=== PATIENT | female | born 1935 | race Hispanic/Latino ===

== ENCOUNTER 2020-05-25 15:17 | Emergency (ER) | payer MEDICARE, OTHER ==
[2020-05-25] MEDS ORDERED: Acetaminophen 500 MG TAB ONE (17:25)
== END 2020-05-25 17:20 | disposition home or self-care (01) ==
LOC: CSHERS 15:17
DX: S00.83XA Contusion of other part of head, initial encounter (principal); E78.5 Hyperlipidemia, unspecified; E78.00 Pure hypercholesterolemia, unspecified; I10 Essential (primary) hypertension; M06.9 Rheumatoid arthritis, unspecified; Z79.82 Long term (current) use of aspirin; Z79.899 Other long term (current) drug therapy; W18.30XA Fall on same level, unspecified, initial encounter
CPT/HCPCS: 70450; 70480; 72170

== ENCOUNTER 2020-05-26 09:41 | Outpatient (CLI) | payer MEDICARE, OTHER | END 2020-05-26 09:42 | disposition home or self-care (01) | LOC: CSHWCC 09:41 | PROVIDERS: ATTEND Nurse Practitioner Family | DX: L89.152 Pressure ulcer of sacral region, stage 2 (principal); I69.998 Other sequelae following unspecified cerebrovascular disease; I10 Essential (primary) hypertension; G89.29 Other chronic pain; M13.80 Other specified arthritis, unspecified site; Z74.01 Bed confinement status | CPT/HCPCS: 99212; G0463 ==

== ENCOUNTER 2020-12-08 08:13 | Outpatient (CLI) | payer MEDICARE, OTHER | END 2020-12-08 08:14 | disposition home or self-care (01) | LOC: CSHWCC 08:13 | PROVIDERS: ATTEND Nurse Practitioner Family | DX: L89.152 Pressure ulcer of sacral region, stage 2 (principal); G89.29 Other chronic pain; I10 Essential (primary) hypertension; I69.998 Other sequelae following unspecified cerebrovascular disease; L89.311 Pressure ulcer of right buttock, stage 1; L89.321 Pressure ulcer of left buttock, stage 1; M13.80 Other specified arthritis, unspecified site; Z74.01 Bed confinement status | CPT/HCPCS: 97139; G0463; 99213 ==

== ENCOUNTER 2020-12-30 09:21 | Outpatient (CLI) | payer MEDICARE, OTHER | END 2020-12-30 09:22 | disposition home or self-care (01) | LOC: CSHWCC 09:21 | PROVIDERS: ATTEND Nurse Practitioner Family | DX: L89.152 Pressure ulcer of sacral region, stage 2 (principal); L89.311 Pressure ulcer of right buttock, stage 1; L89.321 Pressure ulcer of left buttock, stage 1; I69.998 Other sequelae following unspecified cerebrovascular disease; M13.80 Other specified arthritis, unspecified site; G89.29 Other chronic pain; I10 Essential (primary) hypertension; Z74.01 Bed confinement status | CPT/HCPCS: 97139; G0463; 99212 ==